=== PATIENT | female | born 1945 | race African-American/Black ===

== ENCOUNTER 2021-02-21 07:24 | Inpatient (IN) ==
[2021-02-21] MEDS ORDERED: cefOXitin 2,000 MG in Water for inj. (sterile) 10 ML IVP ONE (08:29)
[2021-02-21] MEDS ORDERED: Ringers Solution, Lactated 1,000 ML IVC SCH (08:30)
[2021-02-21] MEDS ORDERED: Sugammadex Sodium 200 MG/2 ML VIAL IV ONE (09:09)
[2021-02-21] MEDS ORDERED: Ketorolac 30 MG/ML VIAL ONE (09:09)
[2021-02-21] MEDS ORDERED: *HR* FentaNYL (PF) 100 MCG/2 ML VIAL ONE (09:10)
[2021-02-21] MEDS ORDERED: *HR* Propofol 200 MG/20 ML VIAL IVP ONE (09:10)
[2021-02-21] MEDS ORDERED: *HR* Rocuronium Bromide 50 MG/5 ML VIAL ONE (09:14)
[2021-02-21] MEDS ORDERED: *HR* Succinylcholine 200 MG/10 ML VIAL IVP ONE (09:14)
[2021-02-21] MEDS ORDERED: Lidocaine HCL 4 ML Topical Solution (Laryng-O-Jet Kit Sterile Pak) TP ONE (09:14)
[2021-02-21] MEDS ORDERED: Lidocaine -MPF 2% 2 ML VIAL ONE (09:14)
[2021-02-21] MEDS ORDERED: Ondansetron 4 MG/2 ML VIAL ONE (09:17)
[2021-02-21] MEDS ORDERED: Acetaminophen IV 1,000 MG/100 ML BAG IVPB ONE (10:46)
[2021-02-21] MEDS ORDERED: *HR* HYDROmorphone PF 0.5 MG/0.5 ML SYRINGE IVP PRN (10:48)
[2021-02-21] MEDS ORDERED: EPHEDrine 50 MG/ML VIAL ONE (11:29)
[2021-02-21] MEDS ORDERED: EPINEPHrine 1 MG/ML VIAL ONE (11:47)
[2021-02-21] MEDS: *HR* FentaNYL (PF) 100 MCG/2 ML VIAL IVP PRN ×2 (11:57→13:14)
[2021-02-21] MEDS ORDERED: Ondansetron 4 MG/2 ML VIAL IVP PRN (14:07)
[2021-02-21] MEDS ORDERED: Naloxone 0.4 MG/ML INJ IVP PRN (14:07)
[2021-02-21] MEDS ORDERED: Morphine Sulfate Oral CONC 10 MG/0.5 ML ORAL.SYG SL PRN (14:07)
[2021-02-21] MEDS: *HR* OxyCODONE/APAP 5/325 TABLET PO PRN (14:31)
[2021-02-21] MEDS: 0.9 % Sodium Chloride 1,000 ML IVC SCH (15:12)
[2021-02-21] MEDS ORDERED: cefOXitin 1,000 MG in Water for inj. (sterile) 10 ML IVP SCH (18:00)
[2021-02-21] MEDS: cefOXitin 1,000 MG in 0.9 % Sodium Chloride Mini Bag 100 ML IVP SCH (20:13)
[2021-02-22 03:16] LABS: Basophils % 0.3 %; Eosinophils % 0.2 %; Hematocrit 28.3 % (35.3-44.9); Hemoglobin 8.9 g/dL (11.5-15.4); Immature Granulocytes % 0.3 % (0-4); Lymphocytes # 2.7 K/mcL (0.6-4.6); Lymphocytes % 25.2 %; Mean Corpuscular HGB Conc 31.4 g/dL (31.6-35.5); Mean Corpuscular Hemoglobin 31.3 pg (28.0-33.3); Mean Corpuscular Volume 99.6 fL (83.0-100.0); Mean Platelet Volume 9.6 fL (9.4-12.4); Monocytes # 0.8 K/mcL (0.0-1.3); Monocytes % 7.7 %; Neutrophils # 7.2 K/mcL (1.6-8.9); Platelet Count 167 K/mcL (140-400); Red Blood Count 2.84 M/mcL (3.82-4.97); Red Cell Distribution Width 11.9 % (11.5-14.5); Segmented Neutrophils % 66.3 %; White Blood Count 10.9 K/mcL (4.3-11.1)
[2021-02-22 03:32] LABS: BUN/Creatinine Ratio 22 (6-26); Blood Urea Nitrogen 17 mg/dL (8-23); Calcium 8.4 mg/dL (8.6-10.3); Carbon Dioxide 25 mEq/L (23-29); Chloride 108 mEq/L (98-107); Glucose 102 mg/dL (70-105); Osmolality,Calculated 288 (280-300); Sodium 138 mEq/L (136-145); eGFR For African Americans > 60 (> 60); eGFR For Non-African Americans > 60 (> 60)
[2021-02-22] MEDS: cefOXitin 1,000 MG in 0.9 % Sodium Chloride Mini Bag 100 ML IVP SCH (04:21)
[2021-02-22] MEDS: *HR* OxyCODONE/APAP 5/325 TABLET PO PRN (04:26)
[2021-02-22] MEDS ORDERED: Water for inj. (sterile) 10 ML ONE (07:39)
[2021-02-22] MEDS: 0.9 % Sodium Chloride 1,000 ML IVC SCH (07:52)
[2021-02-22] MEDS ORDERED: Ketorolac 30 MG/ML VIAL IVP ONE (07:55)
[2021-02-22] MEDS ORDERED: Metoprolol XL (24 HR) Succ 25 MG TAB.ER.24H PO SCH (09:00)
[2021-02-22] MEDS ORDERED: Losartan/HCTZ 50-12.5 TABLET PO SCH (09:00)
[2021-02-22] MEDS ORDERED: FELODIPINE PO SCH (09:00)
[2021-02-22] MEDS: Acetaminophen 325 MG TABLET PO SCH ×2 (09:37→14:06)
[2021-02-22] MEDS ORDERED: *HR* Heparin 5,000 UNIT/ML VIAL SQ SCH (12:41)
[2021-02-22 14:14] VITALS: BP 108/56; PULSE 63; TEMP 98; O2SAT 97
== END 2021-02-22 16:11 | disposition home or self-care (01) | DRG 328 ==
LOC: SAMDAY 07:24 → 3ANU 13:54
PROVIDERS: ADMIT Surgery; ATTEND Surgery